=== PATIENT | male | born 1955 | race Caucasian/White ===

== ENCOUNTER 2024-02-29 06:29 | Day surgery (SDC) | payer OTHER, SELFPAY ==
[2024-02-29 07:10] VITALS: BP 154/118; BMI 29.9
[2024-02-29 07:16] VITALS: BMI 29.9
[2024-02-29 07:18] LABS: Glucose - Point of Care 141 mg/dl (70-99)
[2024-02-29 08:45] VITALS: BP 136/101
[2024-02-29 08:55] VITALS: BP 136/101
[2024-02-29 09:00] VITALS: BP 147/106
[2024-02-29 09:15] VITALS: BP 171/109
== END 2024-02-29 09:30 | disposition home or self-care (01) ==
LOC: SDS 06:29
PROVIDERS: ATTENDING PHYSICIAN Internal Medicine Gastroenterology
DX: Z12.11 Encounter for screening for malignant neoplasm of colon (principal); D12.2 Benign neoplasm of ascending colon; D12.3 Benign neoplasm of transverse colon; K63.5 Polyp of colon; K64.0 First degree hemorrhoids; Z86.0100 Personal history of colon polyps, unspecified; Z98.890 Other specified postprocedural states
CPT/HCPCS: 45385; 88305; 82962

== ENCOUNTER → 2024-04-16 07:15 | Outpatient (REF) | payer OTHER, SELFPAY ==
[2024-04-16 08:21] LABS: % Basophils 0.9 % (0-2); % Eosinophils 1.7 % (0-6); % Immature Granulocytes 0.4 % (0-0.5); % Lymphocytes 28.7 % (20.5-51.1); % Monocytes 11.3 % (1.7-9.3); Absolute Basophils 0.1 10^3/uL (0-0.2); Absolute Eosinophils 0.1 10^3/uL (0-0.7); Absolute Monocytes 0.8 10^3/uL (0.1-0.6); Hematocrit 42.5 % (39.0-52.0); Hemoglobin 15.4 g/dL (13.0-18.0); Mean Corp Hgb Conc. 36.2 g/dL (33.0-37.0); Mean Corpuscular Hgb 32.2 pg (27.0-31.0); Mean Corpuscular Volume 88.9 fL (80.0-94.0); Mean Platelet Volume 9.3 fL (7.4-10.4); Nucleated Red Blood Cells % 0 % (-); Platelet Count 246 10^3/uL (130-400); Red Blood Cell Count 4.78 10^6/uL (4.70-6.10); Red Cell Dist. Width 12.4 % (11.5-14.5)
[2024-04-16 08:40] LABS: ALT (SGPT) 25 U/L (0-50); AST (SGOT) 26 U/L (17-59); Albumin 4.4 g/dl (3.5-5.0); Alkaline Phosphatase 67 U/L (38-126); Blood Urea Nitrogen 20 mg/dl (9-20); Calcium 9.7 mg/dl (8.4-10.2); Carbon Dioxide 31 mmol/L (22-30); Chloride 103 mmol/L (98-107); Glucose 129 mg/dl (70-99); HDL Cholesterol 36 mg/dl; LDL Cholesterol, Calculated 76 mg/dl; Potassium 4.3 mmol/L (3.5-5.1); Sodium 142 mmol/L (135-145); Total Bilirubin 1.1 mg/dl (0.2-1.3); Total Cholesterol 132 mg/dl (50-199); Triglyceride 101 mg/dl (10-149); Very Low Density Lipoprotein 20 mg/dl (0-30); eGFR > 60.00
[2024-04-16 09:09] LABS: PSA, Total - Screen 2.45 ng/ml (0.0-4.0); TSH 1.46 uIU/ml (0.47-4.68)
[2024-04-16 09:19] LABS: Microalbumin, Random Urine <0.6 mg/dl (0.6-1.7)
[2024-04-16 10:01] LABS: Glycohemoglobin (HgbA1c) 6.1 % (4.0-5.6)
== END ==
LOC: REG 07:15
PROVIDERS: ATTENDING PHYSICIAN Nurse Practitioner Family
DX: E11.65 Type 2 diabetes mellitus with hyperglycemia (principal); Z12.5 Encounter for screening for malignant neoplasm of prostate; E78.2 Mixed hyperlipidemia; E66.3 Overweight
CPT/HCPCS: 36415; 80053; 80061; 82043; 82570; 83036; 84443; 85025; G0103

== ENCOUNTER → 2024-10-07 07:41 | Outpatient (REF) | payer OTHER, SELFPAY ==
[2024-10-07 09:30] LABS: ALT (SGPT) 21 U/L (0-50); AST (SGOT) 24 U/L (17-59); Albumin 4.8 g/dl (3.5-5.0); Alkaline Phosphatase 62 U/L (38-126); Blood Urea Nitrogen 17 mg/dl (9-20); Calcium 10.2 mg/dl (8.4-10.2); Carbon Dioxide 32 mmol/L (22-30); Chloride 105 mmol/L (98-107); Glucose 140 mg/dl (70-99); HDL Cholesterol 48 mg/dl; LDL Cholesterol, Calculated 91 mg/dl; Potassium 5.4 mmol/L (3.5-5.1); Sodium 144 mmol/L (135-145); Total Bilirubin 1.3 mg/dl (0.2-1.3); Total Cholesterol 164 mg/dl (50-199); Total Protein 7.7 g/dl (6.3-8.2); Triglyceride 129 mg/dl (10-149); Very Low Density Lipoprotein 25 mg/dl (0-30); eGFR > 60.00
[2024-10-07 11:38] LABS: Glycohemoglobin (HgbA1c) 6.4 % (4.0-5.6)
== END ==
LOC: REG 07:41
PROVIDERS: ATTENDING PHYSICIAN Nurse Practitioner Family
DX: E11.65 Type 2 diabetes mellitus with hyperglycemia (principal); E78.2 Mixed hyperlipidemia
CPT/HCPCS: 36415; 80053; 80061; 83036

== ENCOUNTER → 2025-04-22 07:11 | Outpatient (REF) | payer OTHER, SELFPAY ==
[2025-04-22 08:02] LABS: Hematocrit 45.6 % (39.0-52.0); Hemoglobin 15.2 g/dL (13.0-18.0); Mean Corp Hgb Conc. 33.3 g/dL (33.0-37.0); Mean Corpuscular Volume 93.1 fL (80.0-94.0); Nucleated Red Blood Cells % 0 % (-); Platelet Count 250 10^3/uL (130-400); Red Cell Dist. Width 12.6 % (11.5-14.5)
[2025-04-22 08:35] LABS: Glycohemoglobin (HgbA1c) 5.9 % (4.0-5.9)
[2025-04-22 08:52] LABS: ALT (SGPT) 16 U/L (0-50); AST (SGOT) 20 U/L (17-59); Albumin 4.7 g/dl (3.5-5.0); Alkaline Phosphatase 63 U/L (38-126); Blood Urea Nitrogen 16 mg/dl (9-20); Calcium 10.1 mg/dl (8.4-10.2); Carbon Dioxide 30 mmol/L (22-30); Chloride 101 mmol/L (98-107); Glucose 113 mg/dl (70-99); HDL Cholesterol 43 mg/dl; LDL Cholesterol, Calculated 89 mg/dl; Potassium 4.5 mmol/L (3.5-5.1); Sodium 138 mmol/L (135-145); Total Protein 7.4 g/dl (6.3-8.2); Very Low Density Lipoprotein 28 mg/dl (0-30); eGFR > 60.00
[2025-04-22 09:17] LABS: PSA, Total - Screen 2.20 ng/ml (0.0-4.0)
[2025-04-22 09:20] LABS: Microalbumin, Random Urine 0.7 mg/dl (0.6-1.7)
== END ==
LOC: REG 07:11
PROVIDERS: ATTENDING PHYSICIAN Nurse Practitioner Family
DX: Z00.00 Encounter for general adult medical examination without abnormal findings (principal); E11.65 Type 2 diabetes mellitus with hyperglycemia; E78.2 Mixed hyperlipidemia; N40.1 Benign prostatic hyperplasia with lower urinary tract symptoms; R03.0 Elevated blood-pressure reading, without diagnosis of hypertension; E66.3 Overweight; J30.1 Allergic rhinitis due to pollen; Z12.5 Encounter for screening for malignant neoplasm of prostate
CPT/HCPCS: 36415; 80053; 80061; 82043; 83036; 84443; 85025; G0103